=== PATIENT | female | born 1965 | race Caucasian/White ===

== ENCOUNTER 2018-01-24 06:10 | Emergency (ER) | payer BC ==
[2018-01-24] MEDS ORDERED: Acetaminophen TAB* 325 MG PO ONE (07:05)
--- NOTE | 2018-01-24 07:05 | ED ---
Upper Extremity Pain - HPI Summary HPI Summary: The patient is a 52-year-old female presenting to the ED after a fall this morning in her RV. She endorses pain to the right shoulder mostly to the anterior and superior portion. She also endorses hitting the right side of her forehead. Denies any LOC. Denies any memory loss, confusion, visual changes or disturbances. She states she is at her baseline. Recalls the entire event. She was able to ambulate immediately following the fall. Patient is from out of town and will be traveling back this afternoon. She has not taken anything prior is ROO[employer] VINYL COATING for symptomatic relief. Endorses limitations with range of motion to the right shoulder. Pain is 5/10 and worse with abduction. - History of Current Complaint Chief Complaint: EDHeadInjury Stated Complaint: FELL/SHOULDER PAIN/HEAD Time Seen by Provider: 01/24/18 06:26 Hx Obtained From: Patient Mechanism Of Injury: Fall From A Standing Position Onset/Duration: Started Minutes Ago Timing: Constant Severity Initially: Moderate Severity Currently: Moderate Pain Location: Shoulder Character: Aching Aggravating Factor(s): Movement, Abduction Alleviating Factor(s): Rest, Ice Associated Signs & Symptoms: Negative: Swelling, Redness, Bruising, Weakness, Numbness/Tingling Related History: Dominant Hand Right - Risk Factors Non-Orthopedic Risk Factor: Negative DVT Risk Factors: Negative Septic Arthritis Risk Factor: Negative Compartment Syndrome Risk Factors: Pain - Allergies/Home Medications Allergies/Adverse Reactions: Allergies Allergy/AdvReac Type Severity Reaction Status Date / Time amoxicillin [From Augmentin] Allergy Swelling Verified 01/24/18 06:20 ciprofloxacin [From Cipro] Allergy Swelling Verified 01/24/18 06:20 clavulanic acid Allergy Swelling Verified 01/24/18 06:20 [From Augmentin] Penicillins Allergy Swelling Verified 01/24/18 06:20 Sulfa (Sulfonamide Allergy Swelling Verified 01/24/18 06:20 Antibiotics) PMH/Surg Hx/FS Hx/Imm Hx Previously Healthy: Yes - Immunization History Hx Pertussis Vaccination: No Immunizations Up to Date: Unable to Obtain/Confirm Infectious Disease History: No Infectious Disease History: Denies: Traveled Outside the [place] in Last 30 Days - Social History Occupation: Employed Full-time Lives: With Family Alcohol Use: Rare Hx Substance Use: No Substance Use Type: Reports: None Hx Tobacco Use: No Smoking Status (MU): Never Smoked Tobacco Review of Systems Constitutional: Negative Negative: Fever, Chills, Fatigue Cardiovascular: Negative Negative: Palpitations, Chest Pain Negative: Shortness Of Breath, Cough Genitourinary: Negative Positive: no symptoms reported, see HPI Positive: Bruising - cephalahematoma to the R forehead Negative: Headache, Weakness, Paresthesia, Numbness All Other Systems Reviewed And Are Negative: Yes Physical Exam Triage Information Reviewed: Yes Vital Signs On Initial Exam: Initial Vitals Temp Pulse Resp BP Pulse Ox 98.3 F 74 16 132/95 100 01/24/18 06:17 01/24/18 06:17 01/24/18 06:17 01/24/18 06:17 01/24/18 06:17 Vital Signs Reviewed: Yes Appearance: Positive: No Pain Distress, Well-Nourished, Signs of Trauma - Right forehead cephalohematoma Skin: Positive: Warm, Skin Color Reflects Adequate Perfusion Head/Face: Positive: Normal Head/Face Inspection, Cephalohematoma Eyes: Positive: EOMI, ISMAEL, Conjunctiva Clear Neck: Positive: Supple, Nontender, No Lymphadenopathy Respiratory/Lung Sounds: Positive: Clear to Auscultation, Breath Sounds Present Cardiovascular: Positive: Normal, RRR, Pulses are Symmetrical in both Upper and Lower Extremities Musculoskeletal: Positive: Strength/ROM Intact, Limited @ - Abduction past 90. Negative: Kishan Sign Left, Kishan Sign Right, Edema Left, Edema Right Neurological: Positive: Alert, Oriented to Person Place, Time, CN Intact II-III , Facial Symmetry, Speech Normal Psychiatric: Positive: Normal, Affect/Mood Appropriate AVPU Assessment: Alert Diagnostics - Vital Signs Vital Signs Temp Pulse Resp BP Pulse Ox 01/24/18 06:17 98.3 F 74 16 132/95 100 - Laboratory Lab Statement: Any lab studies that have been ordered have been reviewed, and results considered in the medical decision making process. Course/Dx - Course Course Of Treatment: During the course of treatment, the patient is evaluated for right shoulder pain as well as a head injury. CT brain obtained which shows no intracranial acute findings. Right shoulder x-ray obtained. On physical examination, patient endorses pain with abduction past 90. At rest pain remains a 2/10. Strength intact. Denies any numbness or tingling. Pulses +2 intact bilaterally. X-ray is negative for any acute findings. Patient will follow-up with her orthopedist in her hometown. Sling is given. Ibuprofen 600mg given. - Diagnoses Differential Diagnosis/HQI/PQRI: Positive: Fracture (Closed), Strain, Sprain Provider Diagnoses: Rotator cuff strain Discharge - Sign-Out/Discharge Documenting (check all that apply): Discharge/Admit/Transfer - Discharge Plan Condition: Stable Disposition: HOME Patient Education Materials: Rotator Cuff Injury (ED) Referrals: No Primary Care Phys,NOPCP [Primary Care Provider] - Additional Instructions: Ibuprofen 600mg three times daily for discomfort Keep the arm in the sling until follow up with ortho or if you begin to feel improved - Billing Disposition and Condition Condition: STABLE Disposition: HOME
--- NOTE | 2018-01-24 07:39 | RAD ---
INDICATION: Fall. Intracranial injury COMPARISON: None TECHNIQUE: Noncontrast axial source images were acquired from the skull base to the vertex. FINDINGS: Ventricles/sulci: The ventricles and cisterns are normal in size and configuration for age. Brain parenchyma: There is no focal parenchymal finding, evidence of intracranial mass, or intracranial mass effect. Intracranial hemorrhage:None. Extra-axial spaces: There are no abnormal extra axial fluid collections or evidence of extra-axial mass. Calvarium: There is no calvarial fracture or other calvarial abnormality. Scalp: There is no evidence of scalp or extracalvarial soft tissue abnormality. Paranasal sinuses/mastoid: The paranasal sinuses and mastoid air cells are clear. Other: None. IMPRESSION: No acute intracranial findings
--- NOTE | 2018-01-24 07:40 | RAD ---
INDICATION: Fall. Right shoulder injury COMPARISON: None TECHNIQUE: Routine frontal, Y and axial views were obtained. FINDINGS: The bony structures, joint spaces, and soft tissues are normal for age. IMPRESSION: NEGATIVE EXAMINATION.
[2018-01-24 07:59] VITALS: BP 158/76
== END 2018-01-24 07:58 | disposition home or self-care (01) ==
LOC: ED 06:10
DX: S46.011A Strain of muscle(s) and tendon(s) of the rotator cuff of right shoulder, initial encounter (principal); W19.XXXA Unspecified fall, initial encounter; Y92.9 Unspecified place or not applicable; Z88.3 Allergy status to other anti-infective agents; Z88.0 Allergy status to penicillin; Z88.2 Allergy status to sulfonamides
CPT/HCPCS: 70450; 99282; A9270-GY